=== PATIENT | female | born 1965 | race Caucasian/White ===

== ENCOUNTER 2017-03-09 17:20 | Emergency (ER) | payer OTHER ==
[2017-03-09 17:39] VITALS: BP 128/92; PULSE 82; TEMP 98.7; BMI 21.6
[2017-03-09] MEDS ORDERED: IBUPROFEN 400 MG TABLET (FP) PO ONE (17:40)
--- NOTE | 2017-03-09 17:40 | PDOC ---
Rapid Medical Evaluation Time Seen by Provider: 03/09/17 17:36 Medical Evaluation: Allergies Allergy/AdvReac Type Severity Reaction Status Date / Time No Known Allergies Allergy Verified 01/22/16 14:12 I have performed a brief in-person evaluation of this patient. The patient presents with a chief complaint of: right ear ache x 1 week; decreased hearing right ear. Completed course of amoxicillin - getting worse. Pertinent physical exam findings: minimal swelling to right tragus area. exquisite TTP of right tragus and posterior auricular region. I have ordered the following: ibuprofen The patient will proceed to the ED for further evaluation.
--- NOTE | 2017-03-09 20:09 | PDOC ---
History of Present Illness - General Chief Complaint: Ear Problem Stated Complaint: EAR PROBLEM Time Seen by Provider: 03/09/17 17:36 History Source: Patient Exam Limitations: No Limitations - History of Present Illness Initial Comments: 03/09/17 20:07 Patient here with complaints of persistent right ear pain. Has completed a course of amoxicillin for same and has continued pain , swelling, and some yellowish drainage from exterior notes that are swollen. 03/09/17 20:23 Severity: mild Associated Symptoms: reports: fever/chills, headaches, malaise Past History - Travel Traveled outside of the country in the last 30 days: No Close contact w/someone who was outside of country & ill: No - Past Medical History Allergies/Adverse Reactions: Allergies Allergy/AdvReac Type Severity Reaction Status Date / Time No Known Allergies Allergy Verified 03/09/17 17:37 Home Medications: Ambulatory Orders Neomycin/Polymyxn/Hc [Cortisporin Otic Suspenstion -] 5 drop Q6HPO #1 drops 03/09/17 COPD: No - Surgical History Abdominal Surgery: Yes (MYOMECTOMY: 08/2013) - Suicide/Smoking/Psychosocial Hx Smoking Status: Yes Smoking History: Current every day smoker Have you smoked in the past 12 months: Yes Number of Cigarettes Smoked Daily: 6 Information on smoking cessation initiated: No 'Breaking Loose' booklet given: 08/27/13 Hx Alcohol Use: No Drug/Substance Use Hx: No Substance Use Type: None Review of Systems - Review of Systems Able to Perform ROS?: Yes Is the patient limited Spanish proficient: Yes Constitutional: Yes: Symptoms Reported, See HPI, Malaise HEENTM: Yes: Symptoms Reported, See HPI, Ear Pain, Ear Discharge Respiratory: Yes: See HPI. No: Symptoms reported, Cough Integumentary: No: Symptoms Reported All Other Systems: Reviewed and Negative *Physical Exam - Vital Signs Last Vital Signs Temp Pulse Resp BP Pulse Ox 98.7 F 82 18 128/92 100 03/09/17 17:36 03/09/17 17:36 03/09/17 17:36 03/09/17 17:36 03/09/17 17:36 - Physical Exam General Appearance: Yes: Nourished, Appropriately Dressed, Apparent Distress, Mild Distress, Moderate Distress HEENT: positive: [place], Pharynx Normal, Rhinorrhea. negative: Normal ENT Inspection, TMs Normal (unable to visualize right TM secondary to severe swelling, yellowish exudate, and pain to right canal left TM has congestion but landmarks visualized) Neck: positive: Lymphadenopathy (R), Lymphadenopathy (L) Respiratory/Chest: positive: Lungs Clear, Normal Breath Sounds, Accessory Muscle Use Gastrointestinal/Abdominal: positive: Soft. 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, Fully Oriented, Alert, Normal Mood/ Affect, Normal Response, Motor Strength 06/18 ED Treatment Course - Medications Given in the ED: ED Medications Discontinued Medications Generic Name Dose Route Start Last Admin Trade Name Deonq PRN Reason Stop Dose Admin Ibuprofen 800 mg 03/09/17 17:40 03/09/17 17:55 Motrin - PO 03/09/17 17:41 800 mg ONCE ONE Administration *DC/Admit/Observation/Transfer Diagnosis at time of Disposition: Otitis external Qualifiers: Otitis externa type: unspecified type Chronicity: acute Laterality: right Qualified Code(s): H60.501 - Unspecified acute noninfective otitis externa, right ear - Discharge Dispostion Disposition: HOME Condition at time of disposition: Stable Admit: No - Referrals Referrals: Theo Bautista MD [Primary Care Provider] - - Patient Instructions Printed Discharge Instructions: DI for Otitis Externa Additional Instructions: Rest, lots of fluids; water, teas, soups Hot wet soaks to ear/hot packs may help relieve some pain May use [id number] anesthetic drops to ears to help relieve some pain Avoid getting water in ear, may use alcohol drops to help dry up any water retained in ears Severe using earplugs when swimming to avoid any water retention Continue ibuprofen or Tylenol for pain and fevers Cortisporin otic solution 3-5 drops 3 times a day for 5 days followup with private physician / ENT doctor in 2-3 days Return to emergency department or see private physician immediately for swelling , redness, from ears, or fevers, - Post Discharge Activity Forms/Work/School Notes: Back to Work
[2017-03-09] MEDS ORDERED: NEOMYCIN/POLYMYXN/HC OTIC SUSPENSION 10 ML BOTTLE AS ONE (20:22)
[2017-03-09] MEDS ORDERED: NEOMYCIN/POLYMYXN/HC OTIC SOLUTION 10 ML BOTTLE ONE (20:32)
== END 2017-03-09 20:40 | disposition home or self-care (01) ==
LOC: JERFT 17:20 → SUPCPDRO 17:20 → JERFT 20:40
DX: H60.501 Unspecified acute noninfective otitis externa, right ear (principal); F17.210 Nicotine dependence, cigarettes, uncomplicated
CPT/HCPCS: 99281-25

== ENCOUNTER 2019-11-21 17:05 | Emergency (ER) | payer OTHER ==
--- NOTE | 2019-11-21 17:20 | PDOC ---
Rapid Medical Evaluation Time Seen by Provider: 11/21/19 17:18 Medical Evaluation: Allergies Allergy/AdvReac Type Severity Reaction Status Date / Time No Known Allergies Allergy Verified 03/09/17 17:37 11/21/19 17:19 Pt presents for evaluation of R ear pain starting 3 days ago consistently worsening. States she has decreased hearing Exam: defer to provider Orders: nothing Pt to proceed to the ER for further evaluation Discharge Disposition - Diagnosis Ear pain - Referrals - Patient Instructions - Post Discharge Activity
[2019-11-21 17:21] VITALS: BP 111/78; PULSE 88; TEMP 98; BMI 20.7
--- NOTE | 2019-11-21 17:47 | PDOC ---
History of Present Illness - General Chief Complaint: Ear Problem Stated Complaint: RT EAR PAIN Time Seen by Provider: 11/21/19 17:18 - History of Present Illness Initial Comments: 11/21/19 17:44 54-year-old female no comorbidities presents for evaluation of 3 days of right ear pain and congestion Past History - Medical History Allergies/Adverse Reactions: Allergies Allergy/AdvReac Type Severity Reaction Status Date / Time No Known Allergies Allergy Verified 11/21/19 17:21 Home Medications: Ambulatory Orders Neomycin/Polymyxn/Hc [Cortisporin Otic Suspenstion -] 5 drop Q6HPO #1 drops 03/09/17 Amox-Tr/K Cl [Augmentin - 875Mg Tablet] 1 tab PO BID #20 tablet 11/21/19 Ciprofloxacin HCl/Dexameth [Ciprodex Otic Suspension] 4 drop AD BID 5 Days #1 bottle 11/21/19 Ibuprofen [Motrin -] 600 mg PO TID PRN #30 tablet 11/21/19 Oxycodone HCl/Acetaminophen [Percocet 5-325 mg Tablet] 1 - 2 tab PO Q6H PRN #12 tab MDD 6 11/21/19 COPD: No - Surgical History Abdominal Surgery: Yes (MYOMECTOMY: 08/2013) - Reproductive History Is Patient Now?: No - Psycho-Social/Smoking History Smoking Status: Yes Smoking History: Never smoked Have you smoked in the past 12 months: Yes Number of Cigarettes Smoked Daily: 6 Information on smoking cessation initiated: No 'Breaking Loose' booklet given: 08/27/13 - Substance Abuse Hx (Audit-C & DAST Scrn) How often the patient has a drink containing alcohol: Never Score: In Men: 4 or > Positive; In Women: 3 or > Positive: 0 Screen Result (Pos requires Nsg. Audit-10AR): Negative In the last yr the pt used illegal drug/Rx for NonMed reason: No Score: Yes response is considered Positive: 0 Screen Result (Positive result requires Nsg. DAST-10): Negative Review of Systems - Review of Systems Constitutional: No: Chills, Fever, Malaise, Night Sweats HEENTM: Yes: Ear Pain *Physical Exam - Vital Signs Last Vital Signs Temp Pulse Resp BP Pulse Ox 98 F 88 19 111/78 99 11/21/19 17:18 11/21/19 17:18 11/21/19 17:18 11/21/19 17:18 11/21/19 17:18 - Physical Exam 11/21/19 17:44 GENERAL: The patient is awake, alert, and fully oriented, in no acute distress. HEAD: Normal with no signs of trauma. EYES: sclera anicteric, conjunctiva clear. ENT: Right ear canal is erythemic edematous with purulent material in the canal tympanic membrane is poorly visualized. Left ear canal is normal tympanic membrane is bulging and erythemic with a poor light reflex NECK: Normal range of motion EXTREMITIES: Normal range of motion, no edema. No clubbing or cyanosis. No cords, erythema, or tenderness. NEUROLOGICAL: Cranial nerves II through XII grossly intact. PSYCH: Normal mood, normal affect. SKIN: Warm, Dry, normal turgor, no rashes or lesions noted. ED Treatment Course - Medications Given in the ED: ED Medications Discontinued Medications Generic Name Dose Route Start Last Admin Trade Name Freq PRN Reason Stop Dose Admin Oxycodone/Acetaminophen 2 combo 11/21/19 17:41 11/21/19 17:43 Percocet 5/325 - PO 11/21/19 17:42 2 combo ONCE ONE Administration Medical Decision Making - Medical Decision Making 11/21/19 17:45 This seems to be an otitis externa of the right ear and otitis media of the left ear cannot rule out otitis media of the right ear we will treat for both Ciprodex and Augmentin Percocet for pain the patient is having a hard time with her pain control. Tyra also sent to pharmacy follow-up with ENT I have reviewed the pathophysiology with the patient. They are in agreement with the treatment plan all questions were answered to their satisfaction. Understanding for follow-up without fail was also conveyed to the patient. Again they are in agreement. Discharge - Discharge Information Problems reviewed: Yes Clinical Impression/Diagnosis: Ear pain, Otitis externa, Otitis media Condition: Stable Disposition: HOME - Admission No - Additional Discharge Information Prescriptions: Amox-Tr/K Cl [Augmentin - 875Mg Tablet] 1 tab PO BID #20 tablet Ciprofloxacin HCl/Dexameth [Ciprodex Otic Suspension] 4 drop AD BID 5 Days #1 bottle Ibuprofen [Motrin -] 600 mg PO TID PRN #30 tablet PRN Reason: Pain Oxycodone HCl/Acetaminophen [Percocet 5-325 mg Tablet] 1 - 2 tab PO Q6H PRN #12 tab MDD 6 PRN Reason: Pain - Follow up/Referral Referrals: John Suarez MD [Staff Physician] - - Patient Discharge Instructions Additional Instructions: Please take the antibiotics by mouth as directed and finish the entire course. Please use the eardrop antibiotic for the next 5 days and finish the entire course as prescribed. Motrin as prescribed for pain as needed. Percocet for the next 3 days for pain as needed. Do not take any Tylenol on top of the medication you have been prescribed. Percocet has Tylenol. You may resume Tylenol for pain after the Percocet is finished if you need it. Again, return to the emergency room for worsening symptoms and without fail follow-up with ear nose and throat doctor in 1 to 2 days for further evaluation and treatment options. - Post Discharge Activity
== END 2019-11-21 17:49 | disposition home or self-care (01) ==
LOC: JERFT 17:05
DX: H92.01 Otalgia, right ear (principal)
CPT/HCPCS: 99283-25

== ENCOUNTER 2021-08-24 16:35 | Emergency (ER) | payer OTHER ==
[2021-08-24 16:46] VITALS: BP 115/56; PULSE 63; TEMP 97; BMI 21.2
[2021-08-24] MEDS ORDERED: ACETAMINOPHEN 500 MG TABLET (FP) PO ONE (18:13)
[2021-08-24] MEDS ORDERED: ACETAMINOPHEN 500 MG TABLET (FP) ONE (18:14)
== END 2021-08-24 18:37 | disposition home or self-care (01) ==
LOC: JERFT 16:35
DX: H60.501 Unspecified acute noninfective otitis externa, right ear (principal)
CPT/HCPCS: 99283-25